=== PATIENT | male | born 1975 | race Caucasian/White ===

== ENCOUNTER → 2019-09-05 | Outpatient (CLI) | payer BC ==
[~2019-09-05] MED LIST: HYDACE5 PO; IBUP600 PO; KETO10 PO; RXOXYACE PO
== END | disposition home or self-care (01) ==
LOC: LAB 16:00 → LAB SHORT 16:00
DX: R30.0 Dysuria (principal)
CPT/HCPCS: 87077; 87086; 87186

== ENCOUNTER → 2022-09-26 | Outpatient (CLI) | payer BC | LOC: PLD 12:55 → LAB SHORT 12:55 | DX: R22.42 Localized swelling, mass and lump, left lower limb (principal); M79.672 Pain in left foot; M10.9 Gout, unspecified | CPT/HCPCS: 88302; 88304 ==